=== PATIENT | female | born 1950 | race African-American/Black ===

== ENCOUNTER → 2017-05-24 | Emergency (ER) | payer OTHER, MEDICARE ==
[~2017-05-24] MED LIST: ALBUTEROL SO4 2.5/IPRATROPIUM 0.5 INH SOL 3 ML VIAL.NEB. NEB ONE; methylPREDNISolone NA SUCC 125 MG/2 ML VIAL ONE
--- NOTE | 2017-05-24 12:46 | PDOC ---
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 The patient reports her shortness of breath became worse this morning when she was walking up stairs. The patient states her shortness of breath is made worse with exertion and reports audible wheezing for approx. two days. The patient reports associated symptoms of chest tightness for 2 days. The patient reports associated symptoms of non productive cough and nausea. Patient states she lives at home with her granddaughter who is currently experiencing cold symptoms. Pt denies recent travel. The patient reports she has mold in her kitchen that may be effecting her breathing. She denies recent fevers, chills, abd pain, headache or dizziness. She denies swelling or calf tenderness. She denies recent, vomit, diarrhea or constipation. She denies recent dysuria, frequency, urgency or hematuria. Allergies: Penicillins Past surgical history: Appendectomy, Lysis of adhesions, Left breast biopsy, Resection of fibroids, Right rotator cuff repair, Bilateral tubal ligation Social history: Reports she stopped smoking approx. 20 years ago. Denies EtOH use and recreational drug use. " <Mike Mix - Last Filed: 05/24/17 15:17> <Arnold Munoz - Last Filed: 05/24/17 17:45> - General Stated Complaint: DIFFICULTY BREATHING Time Seen by Provider: 05/24/17 12:24 Past History <Mike Mix - Last Filed: 05/24/17 15:17> - Past Medical History Anemia: No Asthma: No Cancer: No Cardiac Disorders: No CVA: No COPD: No Dementia: No Diabetes: No Dialysis: No GI Disorders: No Disorders: No HTN: No Hypercholesterolemia: No HIV: No Kidney Stones: No Liver Disease: No Seizures: No Thyroid Disease: No - Surgical History Abdominal Surgery: No Appendectomy: No Cardiac Surgery: No Lung Surgery: No Neurologic Surgery: No - Psycho/Social/Smoking Cessation Hx Anxiety: No Suicidal Ideation: No Smoking Status: No Smoking History: Former smoker Have you smoked in the past 12 months: No Number of Cigarettes Smoked Daily: 0 Hx Alcohol Use: No Drug/Substance Use Hx: No Substance Use Type: None <Arnold Munoz - Last Filed: 05/24/17 17:45> - Past Medical History Allergies/Adverse Reactions: Allergies Allergy/AdvReac Type Severity Reaction Status Date / Time Penicillins Allergy Unknown Verified 02/08/16 01:04 Home Medications: Ambulatory Orders Multivitamin [Daily Multiple Vitamin] 1 each PO DAILY 04/20/12 Review of Systems - Review of Systems Comments:: 05/24/17 15:18 "GENERAL/CONSTITUTIONAL: No fever or chills. HEAD, EYES, EARS, NOSE AND THROAT: No change in vision. No ear pain or discharge. No sore throat. CARDIOVASCULAR: +Chest tightness RESPIRATORY: +Shortness of breath. +Non productive cough. No hemoptysis. GASTROINTESTINAL: +Nausea. No abd pain. No vomiting, diarrhea or constipation. GENITOURINARY: No dysuria, frequency, or change in urination. MUSCULOSKELETAL: No joint or muscle swelling or pain. No neck or back pain. SKIN: No rash NEUROLOGIC: No headache, vertigo, loss of consciousness, or change in strength/ sensation. ENDOCRINE: No increased thirst. No abnormal weight change. HEMATOLOGIC/LYMPHATIC: No anemia, easy bleeding, or history of blood clots. ALLERGIC/IMMUNOLOGIC: No hives or skin allergy. " <Mike Mix - Last Filed: 05/24/17 15:17> *Physical Exam - Vital Signs Last Vital Signs Temp Pulse Resp BP Pulse Ox 98.2 F 92 H 17 161/71 97 05/24/17 13:10 05/24/17 14:12 05/24/17 14:12 05/24/17 13:10 05/24/17 14:12 - Physical Exam Comments: 05/24/17 15:19 " GENERAL: +Mild respiratory distress speaking in 4-5 word sentences. Awake, alert , and fully oriented. HEAD: No signs of trauma EYES: PERRLA, EOMI, sclera anicteric, conjunctiva clear ENT: Auricles normal inspection, hearing grossly normal, nares patent, oropharynx clear without exudates. Moist mucosa NECK: Normal ROM, supple, no lymphadenopathy, JVD, or masses LUNGS: +Diffuse mild wheezing L>R. No crackles. Good air movement. No increased in work of breathing. HEART: Regular rate and rhythm, normal S1 and S2, no murmurs, rubs or gallops ABDOMEN: Soft, nontender, normoactive bowel sounds. No guarding, no rebound. No masses EXTREMITIES: Normal range of motion, no lower extremity edema. No clubbing or cyanosis. No cords, erythema, or tenderness NEUROLOGICAL: Normal speech, cranial nerves intact, negative pronator drift, 5/ 5 strength in all 4 extremities, normal sensation to light touch in all 4 extremities, normal cerebellar exam, normal gait, normal reflexes and tone SKIN: Warm, Dry, normal turgor, no rashes or lesions noted. ALLERGIC/IMMUNOLOGIC: No hives or skin allergy. " <Mike Mix - Last Filed: 05/24/17 15:17> ED Treatment Course - LABORATORY CBC & Chemistry Diagram: 05/24/17 13:12 05/24/17 13:12 - ADDITIONAL ORDERS Additional order review: Laboratory Results 05/24/17 05/24/17 13:12 13:10 Sodium 144 Potassium 3.4 L D Chloride 106 Carbon Dioxide 28 Anion Gap 10 BUN 16 D Creatinine 0.7 Creat Clearance w eGFR > 60 Random Glucose 118 H D Calcium 9.0 Magnesium 2.0 Total Bilirubin 0.4 D AST 11 L ALT 19 D Alkaline Phosphatase 51 Troponin I < 0.02 B-Natriuretic Peptide 16.36 Total Protein 6.9 Albumin 3.7 05/24/17 13:12 RBC 4.66 MCV 82.3 MCHC 32.9 RDW 15.2 MPV 8.8 Neutrophils % 49.6 D Lymphocytes % 44.2 H D Monocytes % 3.6 L Eosinophils % 1.6 Basophils % 1.0 <Mike Mix - Last Filed: 05/24/17 15:17> - LABORATORY CBC & Chemistry Diagram: 05/24/17 13:12 05/24/17 13:12 <Arnold Munoz - Last Filed: 05/24/17 17:45> Medical Decision Making - Medical Decision Making 05/24/17 15:03 67-year-old female history of osteomyelitis of the right jaw status post resection presents with 3 days of shortness of breath associated with chest tightness and coughing. Exam with diffuse mild wheezing and good air movement. Likely reactive airway disease possibly secondary to a viral syndrome given sick contact of granddaughter. Also on the differential is pneumonia however unlikely in absence of productive cough and fever. Pt reports possible mold exposure in her home as well and this may also be causing her SOB. We will check a troponin for the chest tightness that she's experienced for 2 days but unlikely to be ACS given wheezing, coughing, and non-ischemic EKG -labs -CXR -nebs -reassess 05/24/17 15:35 EKG, my read: NSR, rate 97, normal axis and intervals. TW flattening in II, III , avf and V4-V6. No DAV 05/24/17 17:39 Pt feels a lot better after a single round of nebs. Her labs are unremarkable. Her chest x-ray is clear. Likely reactive airway disease. Denies any chest tightness. Her daughter is here and states her mother has had on and off similar symptoms for 1 year now, possibly 2/2 to mold in her apartment. Given improvement with albuterol I will discharge the patient with albuterol and follow up with her primary care doctor within 1-3 days. Given the mold that the patient reports in her home, she informs me that she can stay with her daughter edith until the inspectors come to the apartment tomorrow to evaluate and treat the mold situation. I discussed the physical exam findings, ancillary test results and final diagnoses with the patient. I answered all of the patient's questions. The patient was satisfied with the care received and felt comfortable with the discharge plan and treatment plan. The patient will call their primary care physician within 24 hours to arrange follow-up and will return to the Emergency Department with any new, persistent or worsening symptoms. text <Arnold Munoz - Last Filed: 05/24/17 17:45> *DC/Admit/Observation/Transfer - Attestations Scribe Attestion: 05/24/17 15:19 Documentation prepared by Mike Mix, acting as medical billing coordinator for Arnold Munoz MD. <Mike Mix - Last Filed: 05/24/17 15:17> - Discharge Dispostion Admit: No - Attestations Physician Attestion: 05/24/17 17:44 I, Dr. Arnold Munoz MD, attest that this document has been prepared under my direction and personally reviewed by me in its entirety. I further attest, that it accurately reflects all work, treatment, procedures and medical decision -making performed by me. <Arnold Munoz - Last Filed: 05/24/17 17:45> Diagnosis at time of Disposition: Shortness of breath - Discharge Dispostion Disposition: HOME Condition at time of disposition: Stable - Patient Instructions Additional Instructions: Please see your primary care doctor within 1-3 days. Return to the emergency department immediately if your shortness of breath returns or if you have chest pain, fevers, weakness, falls or any symptoms you are concerned about.
[2017-05-24 13:15] VITALS: TEMP 98.2; BMI 30.2
[2017-05-24 13:31] LABS: EOSINOPHIL 1.6 % (0-4.5); MCH 27.1 pg (25.7-33.7); MCHC 32.9 g/dl (32.0-36.0); MEAN CELL VOLUME 82.3 fl (80-96); MEAN PLT VOLUME 8.8 fl (7.5-11.1); NEUTROPHILS 49.6 % (42.8-82.8); PLATELET COUNT 317 K/MM3 (134-434); RDW 15.2 % (11.6-15.6); WHITE BLOOD COUNT 6.9 K/mm3 (4.0-10.0)
[2017-05-24 14:19] LABS: ALBUMIN 3.7 g/dl (3.4-5.0); ANION GAP 10 (8-16); BILIRUBIN,TOTAL 0.4 mg/dL (0.2-1.0); CO2 28 mmol/L (21-32); CREATININE 0.7 mg/dL (0.55-1.02); GLUCOSE,RANDOM 118 mg/dL (74-106); SGOT/AST 11 U/L (15-37); SGPT/ALT 19 U/L (12-78); TOT PROT 6.9 g/dl (6.4-8.2)
[2017-05-24 14:22] LABS: ALK PHOS 51 U/L (45-117); TROPONIN I < 0.02 ng/ml (0.00-0.05)
[2017-05-24 17:56] VITALS: BP 141/68; PULSE 86
--- NOTE | 2017-05-25 10:27 | EKG ---
Test Reason : Blood Pressure : / mmHG Vent. Rate : 097 BPM Atrial Rate : 097 BPM P-R Int : 140 ms QRS Dur : 080 ms QT Int : 342 ms P-R-T Axes : 046 -07 008 degrees QTc Int : 434 ms NORMAL SINUS RHYTHM MODERATE VOLTAGE CRITERIA FOR LVH, MAY BE NORMAL VARIANT NONSPECIFIC T WAVE ABNORMALITY ABNORMAL ECG WHEN COMPARED WITH ECG OF 08-FEB-2016 07:57, NONSPECIFIC T WAVE ABNORMALITY NOW EVIDENT IN LATERAL LEADS Confirmed by ROYCE BONNER MD ([id number]) on 05/25/2017 10:26:39 AM Referred By: Confirmed By:ROYCE BONNER MD
== END | disposition home or self-care (01) ==
LOC: JER 12:16
PROC: 3E0F7GC Introduction of Other Therapeutic Substance into Respiratory Tract, Via Natural or Artificial Opening (ICD-10-PCS; principal; 2017-05-24)
DX: R06.02 Shortness of breath (principal); Z87.39 Personal history of other diseases of the musculoskeletal system and connective tissue; Z88.0 Allergy status to penicillin; Z87.891 Personal history of nicotine dependence
CPT/HCPCS: 36415; 71010-TC; 80053; 83735; 83880; 84484; 85025; 93005; 93010; 99282-25

== ENCOUNTER 2019-08-03 00:02 | Emergency (ER) | payer OTHER, MEDICARE ==
[2019-08-03] MEDS ORDERED: ASPIRIN 81 MG CHEWABLE TABLETS PO ONE (00:13)
[2019-08-03 00:19] VITALS: BP 139/88; PULSE 89; TEMP 98; BMI 29.5
[2019-08-03] MEDS ORDERED: ASPIRIN 81 MG CHEWABLE TABLETS ONE (00:30)
[2019-08-03] MEDS ORDERED: LIDOCAINE 5% TOPICAL PATCH ONE (00:38)
[2019-08-03] MEDS ORDERED: diazePAM 5 MG TABLET PO ONE (00:47)
[2019-08-03] MEDS ORDERED: diazePAM 5 MG TABLET ONE (01:12)
--- NOTE | 2019-08-03 01:47 | PDOC ---
History of Present Illness - General Chief Complaint: Pain, Acute Stated Complaint: LEFT ARM PAIN Time Seen by Provider: 08/03/19 00:12 History Source: Patient Exam Limitations: No Limitations - History of Present Illness Is this a multiple visit Asthma Patient?: No Timing/Duration: 24 hours Severity: moderate, severe Associated Symptoms: reports: denies symptoms Past History - Travel Traveled outside of the country in the last 30 days: Yes If so, where?: [place] - Past Medical History Allergies/Adverse Reactions: Allergies Allergy/AdvReac Type Severity Reaction Status Date / Time Penicillins Allergy Unknown Verified 08/03/19 00:17 Home Medications: Ambulatory Orders Multivitamin [Daily Multiple Vitamin] 1 each PO DAILY 04/20/12 Albuterol Sulfate Inhaler - [Ventolin HFA Inhaler -] 1 - 2 inh PO Q4H PRN #1 inhaler 05/24/17 Ibuprofen [Motrin -] 600 mg PO TID #30 tablet 08/03/19 Methocarbamol [Robaxin -] 500 mg PO TID #30 tablet 08/03/19 Methocarbamol [Robaxin -] 500 mg PO TID #30 tablet 08/03/19 Anemia: No Asthma: No Cancer: No Cardiac Disorders: No CVA: No COPD: No Dementia: No Diabetes: No Dialysis: No GI Disorders: No Disorders: No HTN: No Hypercholesterolemia: No Kidney Stones: No Liver Disease: No Seizures: No Thyroid Disease: No - Surgical History Abdominal Surgery: No Appendectomy: No Cardiac Surgery: No Lung Surgery: No Neurologic Surgery: No - Psycho Social/Smoking Cessation Hx Smoking Status: No Smoking History: Never smoked Have you smoked in the past 12 months: No Number of Cigarettes Smoked Daily: 0 If you are a former smoker, when did you quit?: 1986 Information on smoking cessation initiated: No Hx Alcohol Use: No Drug/Substance Use Hx: No Substance Use Type: None Review of Systems - Review of Systems Able to Perform ROS?: No Is the patient limited Mongolian proficient: No Constitutional: No: Symptoms Reported, See HPI, Chills, Diaphoresis, Fever, Loss of Appetite, Malaise, Night Sweats, Weakness, Weight Stable, Unintentional Wgt. Loss, Unexplained wgt Loss, Other HEENTM: No: Symptoms Reported, See HPI, Eye Pain, Blurred Vision, Tearing, Recent change in vision, Double Vision, Cataracts, Ear Pain, Ocular Prothesis, Ear Discharge, Nose Pain, Nose Congestion, Tinnitus, Nose Bleeding, Hearing Loss , Throat Pain, Throat Swelling, Mouth Pain, Dental Problems, Difficulty Swallowing, Mouth Swelling, Other Cardiac (ROS): No: Symptoms Reported, See HPI, Chest Pain, Edema, Irregular Heart Rate, Lightheadedness, Palpitations, Syncope, Chest Tightness, Other ABD/GI: Yes: Nausea. No: Symptoms Reported, See HPI, Abdominal Distended, Abd. Pain w/ defecation, Blood Streaked Bowels, Constipated, Diarrhea, Difficulty Swallowing, Poor Appetite, Poor Fluid Intake, Rectal Bleeding, Vomiting, Indigestion, Abdominal cramping, Tarry Stools, Other : No: Symptoms Reported, See HPI, Burning, Dysuria, Discharge, Frequency, Flank Pain, Hematuria, Incontinence, Pain, Urgency, Testicular Mass, Testicular Swelling, Lesions, Testicular Pain, Other Musculoskeletal: Yes: Joint Pain, Muscle Pain, Neck Pain, Joint Stiffness. No: Symptoms Reported, See HPI, Back Pain, Gout, Joint Swelling, Muscle Weakness, Other Integumentary: No: Symptoms Reported, See HPI, Bruising, Change in Color, Change in Hair/Nails, Dryness, Erythema, Flushing, Lesions, Lumps, Pallor, Pruritus, Rash, Sweating, Other Neurological: Yes: Weakness. No: Symptoms reported, See HPI, Headache, Numbness , Paresthesia, Pre-Existing Deficit, Seizure, Tingling, Tremors, Unsteady Gait, Ataxia, Dizziness, Other Psychiatric: No: Anxiety, Depression, Frequent Crying, Stressors, Sleep Pattern Change, Emotional Problems, Mood Swings, Change in Appetite, Other Endocrine: No: Symptoms Reported, See HPI, Excessive Sweating, Flushing, Intolerance to Cold, Intolerance to Heat, Increased Hunger, Increased Thirst, Increased Urine, Unexplained Weight Gain, Unexplained Weight Loss, Change in Weight, Other *Physical Exam - Vital Signs Last Vital Signs Temp Pulse Resp BP Pulse Ox 98.0 F 89 18 139/88 99 08/03/19 00:18 08/03/19 00:18 08/03/19 00:18 08/03/19 00:18 08/03/19 00:18 - Physical Exam General Appearance: Yes: Nourished, Appropriately Dressed, Moderate Distress HEENT: positive: EOMI, KPI, Normal ENT Inspection, Normal Voice, Symmetrical, TMs Normal, Pharynx Normal Neck: positive: Tender, Trachea midline, Supple Respiratory/Chest: positive: Lungs Clear, Normal Breath Sounds Cardiovascular: positive: Regular Rhythm, Regular Rate, S1, S2 Gastrointestinal/Abdominal: positive: Normal Bowel Sounds, Flat, Soft Musculoskeletal: positive: Normal Inspection, CVA Tenderness Extremity: positive: Normal Capillary Refill, Normal Inspection, Normal Range of Motion Integumentary: positive: Normal Color, Dry, Warm 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 NML intact, Fully Oriented, Alert, Normal Mood/ Affect, Normal Response, Motor Strength 5/5 (except for the left arm; deccreased strength due to pain in the shoulder) ED Treatment Course - RADIOLOGY Radiology Studies Ordered: Category Date Time Status CERVICAL SPINE CT W/O CONTR [CT] Stat CT Scan 08/03/19 00:44 Ordered SHOULDER-LEFT [RAD] Stat Radiology 08/03/19 00:46 Ordered - Medications Given in the ED: ED Medications Discontinued Medications Generic Name Dose Route Start Last Admin Trade Name Juanq PRN Reason Stop Dose Admin Aspirin 162 mg 08/03/19 00:13 08/03/19 00:42 Asa - PO 08/03/19 00:14 Not Given ONCE ONE Diazepam 5 mg 08/03/19 00:47 08/03/19 01:19 Valium - PO 08/03/19 00:48 5 mg ONCE ONE Administration Oxycodone/Acetaminophen 2 combo 08/03/19 00:12 08/03/19 00:42 Percocet 5/325 - PO 08/03/19 00:13 2 combo ONCE ONE Administration Medical Decision Making - Medical Decision Making 08/03/19 03:09 [place] X[address] appears normal. CT cervical spine appears normal to me; official result is pending. 08/03/19 03:23 Patient Name: SOLOMON ESCOBAR THIS IS A PRELIMINARY REPORT FROM [facility] DATE OF SERVICE: 2019-08-03 02:02:53 IMAGES: [id number] EXAM: CERVICAL SPINE CT W/O CONTR HISTORY: Trauma COMPARISON: None. FINDINGS: Mild degenerative changes are noted with a mild degenerative retrolisthesis of C4 on C5. There is no fracture or prevertebral soft tissue swelling. The lung apices are clear. IMPRESSION: No fracture. Discharge - Discharge Information Problems reviewed: Yes Clinical Impression/Diagnosis: Muscle spasm of shoulder region Condition: Improved Disposition: HOME - Admission No - Additional Discharge Information Prescriptions: Ibuprofen [Motrin -] 600 mg PO TID #30 tablet Methocarbamol [Robaxin -] 500 mg PO TID #30 tablet Methocarbamol [Robaxin -] 500 mg PO TID #30 tablet - Follow up/Referral - Patient Discharge Instructions Patient Printed Discharge Instructions: DI for Muscle Spasm - Post Discharge Activity
[2019-08-03] MEDS ORDERED: METHOCARBAMOL 500 MG TABLET PO ONE (03:20)
[2019-08-03] MEDS ORDERED: METHOCARBAMOL 500 MG TABLET ONE (03:32)
--- NOTE | 2019-08-03 09:29 | EKG ---
Test Reason : Blood Pressure : / mmHG Vent. Rate : 090 BPM Atrial Rate : 090 BPM P-R Int : 138 ms QRS Dur : 068 ms QT Int : 372 ms P-R-T Axes : 051 009 -14 degrees QTc Int : 455 ms POOR DATA QUALITY, INTERPRETATION MAY BE ADVERSELY AFFECTED NORMAL SINUS RHYTHM POSSIBLE LEFT ATRIAL ENLARGEMENT BORDERLINE ECG WHEN COMPARED WITH ECG OF 24-MAY-2017 13:39, NONSPECIFIC T WAVE ABNORMALITY, IMPROVED IN LATERAL LEADS Confirmed by REJI CONTRERAS, LEANNE ([id number]) on 08/03/2019 9:29:40 AM Referred By: Confirmed By:LEANNE MENDOZA MD
== END 2019-08-03 03:48 | disposition home or self-care (01) ==
LOC: JER 00:02
DX: M62.838 Other muscle spasm (principal); Z88.0 Allergy status to penicillin
CPT/HCPCS: 72125-TC; 73030-TC-LT-FY; 93005; 93010; 99282-25

== ENCOUNTER 2023-10-01 03:27 | Emergency (ER) | payer OTHER ==
[2023-10-01 03:45] VITALS: BP 121/80; PULSE 81; RESP 20; TEMP 97.4; BMI 28.9
[2023-10-01] MEDS ORDERED: KETOROLAC TROMETHAMINE 30 MG/1 ML VIAL IM ONE (03:48)
[2023-10-01] MEDS ORDERED: LIDOCAINE 5% TOPICAL PATCH TP ONE (03:48)
[2023-10-01] MEDS ORDERED: diazePAM 5 MG TABLET PO ONE (03:48)
[2023-10-01] MEDS ORDERED: diazePAM 5 MG TABLET ONE (04:01)
[2023-10-01] MEDS ORDERED: KETOROLAC TROMETHAMINE 30 MG/1 ML VIAL ONE (04:01)
[2023-10-01] MEDS ORDERED: LIDOCAINE 4% PATCH TP ONE (04:01)
[2023-10-01] MEDS ORDERED: morphine CARPU-JECT 2 MG/1 ML DISP.SYRIN IM ONE (05:05)
[2023-10-01] MEDS ORDERED: LIDOCAINE PATCH REMOVAL MC SCH (22:00)
== END 2023-10-01 06:55 | disposition home or self-care (01) ==
LOC: JER 03:27
PROC: 3E0233Z Introduction of Anti-inflammatory into Muscle, Percutaneous Approach (ICD-10-PCS; principal; 2023-10-01)
PROC: 3E023GC Introduction of Other Therapeutic Substance into Muscle, Percutaneous Approach (ICD-10-PCS; 2023-10-01)
DX: M54.2 Cervicalgia (principal); M43.6 Torticollis; W19.XXXA Unspecified fall, initial encounter
CPT/HCPCS: 72125-TC; 99284-25

== ENCOUNTER 2023-10-01 22:34 | Observation (INO) | payer OTHER ==
[2023-10-01] MEDS ORDERED: morphine CARPU-JECT 4 MG/1 ML DISP.SYRIN IVPUSH ONE (23:19)
[2023-10-01] MEDS ORDERED: morphine SULFATE 4 MG/ML VIAL ONE (23:24)
[2023-10-02 00:08] LABS: BASO % 0.8 % (0-2.0); EOS % 1.7 % (0-4.5); HEMATOCRIT 42.8 % (32.4-45.2); HEMOGLOBIN 13.9 GM/dL (10.7-15.3); LYMPH % 21.4 % (8-40); MCH 26.9 pg (25.7-33.7); MCHC 32.5 g/dl (32.0-36.0); MEAN CELL VOLUME 82.9 fl (80-96); MEAN PLT VOLUME 8.2 fl (7.5-11.1); MONO % 4.2 % (3.8-10.2); NEUT % 71.9 % (42.8-82.8); PLATELET COUNT 332 10^3/uL (134-434); RBC 5.16 M/mm3 (3.60-5.2); RDW 14.9 % (11.6-15.6); WHITE BLOOD COUNT 6.6 K/mm3 (4.0-10.0)
[2023-10-02 00:37] LABS: ALBUMIN 3.8 g/dl (3.4-5.0); CALCIUM 9.3 mg/dL (8.5-10.1)
[2023-10-02 00:38] LABS: BLOOD UREA NITROGEN 16.8 mg/dL (7-18)
[2023-10-02 00:41] LABS: CREATININE 0.8 mg/dL (0.55-1.3)
[2023-10-02 00:43] LABS: BILIRUBIN,TOTAL 0.2 mg/dL (0.2-1); TOT PROT 7.7 g/dl (6.4-8.2)
[2023-10-02] MEDS ORDERED: KETOROLAC TROMETHAMINE 30 MG/1 ML VIAL IVPUSH ONE (03:14)
[2023-10-02] MEDS ORDERED: LIDOCAINE 4% PATCH TP ONE ×3 (03:15→10:06)
[2023-10-02] MEDS ORDERED: KETOROLAC TROMETHAMINE 30 MG/1 ML VIAL ONE ×2 (03:22→04:03)
[2023-10-02] MEDS ORDERED: KETOROLAC TROMETHAMINE 30 MG/1 ML VIAL IM ONE (03:42)
[2023-10-02] MEDS ORDERED: ACETAMINOPHEN 500 MG TABLET (FP) PO PRN (06:03)
[2023-10-02] MEDS ORDERED: traMADol HCL 50 MG TABLET PO ONE (06:07)
[2023-10-02] MEDS ORDERED: SODIUM CHLORIDE 1,000 ML IV SCH (06:15)
[2023-10-02] MEDS ORDERED: traMADol HCL 50 MG TABLET ONE ×2 (06:32→16:39)
[2023-10-02 06:54] LABS: HEMATOCRIT 38.5 % (32.4-45.2); HEMOGLOBIN 12.4 GM/dL (10.7-15.3); MCHC 32.2 g/dl (32.0-36.0); MEAN CELL VOLUME 83.8 fl (80-96); MEAN PLT VOLUME 8.8 fl (7.5-11.1); PLATELET COUNT 283 10^3/uL (134-434); RBC 4.59 M/mm3 (3.60-5.2); RDW 14.9 % (11.6-15.6); WHITE BLOOD COUNT 5.1 K/mm3 (4.0-10.0)
[2023-10-02 07:18] LABS: POTASSIUM 3.9 mmol/L (3.5-5.1)
[2023-10-02 07:22] LABS: ALBUMIN 3.4 g/dl (3.4-5.0)
[2023-10-02 07:23] LABS: BLOOD UREA NITROGEN 14.8 mg/dL (7-18)
[2023-10-02 07:25] LABS: CREATININE 0.7 mg/dL (0.55-1.3)
[2023-10-02 07:27] LABS: BILIRUBIN,TOTAL 0.2 mg/dL (0.2-1); TOT PROT 6.6 g/dl (6.4-8.2)
[2023-10-02] MEDS ORDERED: ENOXAPARIN NA (PORCINE) 40 MG/0.4 ML DISP.SYRIN SQ ONE (10:07)
[2023-10-02] MEDS: LIDOCAINE 4% PATCH TP SCH (10:24)
[2023-10-02] MEDS: ENOXAPARIN NA (PORCINE) 40 MG/0.4 ML DISP.SYRIN SQ SCH ×2 (10:26→10:43)
[2023-10-02] MEDS: CELECOXIB 200 MG CAPSULE PO SCH ×2 (10:26→22:47)
[2023-10-02] MEDS ORDERED: CYCLOBENZAPRINE HCL 5 MG TABLET ONE (10:44)
[2023-10-02] MEDS: ACETAMINOPHEN 500 MG TABLET (FP) PO SCH (14:00)
[2023-10-02] MEDS: CYCLOBENZAPRINE HCL 10 MG TABLET (FP) PO PRN ×2 (16:27→22:48)
[2023-10-02] MEDS: traMADol HCL 50 MG TABLET PO PRN ×2 (16:46→22:44)
[2023-10-02] MEDS ORDERED: ACETAMINOPHEN 1000 MG/100 ML BAG IVPB ONE (20:16)
[2023-10-02] MEDS: KETOROLAC TROMETHAMINE 15 MG/ML VIAL IM PRN (20:38)
[2023-10-02] MEDS ORDERED: LIDOCAINE PATCH REMOVAL MC SCH (22:00)
[2023-10-03] MEDS: LIDOCAINE PATCH REMOVAL MC SCH ×2 (00:15→22:13)
[2023-10-03 03:24] VITALS: RESP 18
[2023-10-03] MEDS: ACETAMINOPHEN 500 MG TABLET (FP) PO SCH ×4 (05:06→22:43)
[2023-10-03] MEDS: KETOROLAC TROMETHAMINE 15 MG/ML VIAL IM PRN ×3 (05:10→22:04)
[2023-10-03] MEDS: LIDOCAINE 4% PATCH TP SCH (09:30)
[2023-10-03] MEDS: ENOXAPARIN NA (PORCINE) 40 MG/0.4 ML DISP.SYRIN SQ SCH ×2 (09:30→09:39)
[2023-10-03] MEDS: traMADol HCL 50 MG TABLET PO PRN ×2 (09:31→15:16)
[2023-10-03] MEDS: CELECOXIB 200 MG CAPSULE PO SCH ×2 (09:31→23:45)
[2023-10-03] MEDS ORDERED: methylPREDNISolone 8 MG TABLET PO ONE (10:54)
[2023-10-03] MEDS: CYCLOBENZAPRINE HCL 10 MG TABLET (FP) PO PRN ×2 (11:57→22:08)
[2023-10-03 16:01] LABS: BASO % 1.3 % (0-2.0); EOS % 3.4 % (0-4.5); HEMATOCRIT 38.8 % (32.4-45.2); HEMOGLOBIN 12.5 GM/dL (10.7-15.3); LYMPH % 31.6 % (8-40); MCHC 32.2 g/dl (32.0-36.0); MEAN CELL VOLUME 84.1 fl (80-96); MEAN PLT VOLUME 8.5 fl (7.5-11.1); MONO % 5.8 % (3.8-10.2); NEUT % 57.9 % (42.8-82.8); PLATELET COUNT 296 10^3/uL (134-434); RBC 4.62 M/mm3 (3.60-5.2); RDW 15.2 % (11.6-15.6); WHITE BLOOD COUNT 5.3 K/mm3 (4.0-10.0)
[2023-10-03 16:23] LABS: POTASSIUM 3.9 mmol/L (3.5-5.1)
[2023-10-03 16:24] LABS: CALCIUM 8.7 mg/dL (8.5-10.1)
[2023-10-03 16:26] LABS: BLOOD UREA NITROGEN 11.1 mg/dL (7-18); MAGNESIUM 1.8 mg/dL (1.8-2.4)
[2023-10-03 16:27] LABS: CREATININE 0.6 mg/dL (0.55-1.3)
[2023-10-03 16:29] LABS: BILIRUBIN,TOTAL 0.2 mg/dL (0.2-1); TOT PROT 6.2 g/dl (6.4-8.2)
[2023-10-03] MEDS ORDERED: traMADol HCL 50 MG TABLET PO ONE (21:39)
[2023-10-03] MEDS: GABAPENTIN 300 MG CAPSULE PO SCH ×2 (22:08→22:43)
[2023-10-03] MEDS ORDERED: SENNOSIDES 8.8 MG/5 ML SYRUP PO SCH (22:44)
[2023-10-03] MEDS: POLYETHYLENE GLYCOL (HEALTHYLAX) 3350 17 GM PACKET PO SCH (22:48)
[2023-10-04] MEDS: GABAPENTIN 300 MG CAPSULE PO SCH ×3 (05:01→13:35)
[2023-10-04] MEDS: ACETAMINOPHEN 500 MG TABLET (FP) PO SCH ×2 (06:51→13:34)
[2023-10-04] MEDS: traMADol HCL 50 MG TABLET PO PRN (06:54)
[2023-10-04 07:19] VITALS: BP 111/60; PULSE 80; TEMP 98.3
[2023-10-04] MEDS ORDERED: traMADol HCL 50 MG TABLET PO PRN (08:01)
[2023-10-04] MEDS: ENOXAPARIN NA (PORCINE) 40 MG/0.4 ML DISP.SYRIN SQ SCH (09:11)
[2023-10-04] MEDS: POLYETHYLENE GLYCOL (HEALTHYLAX) 3350 17 GM PACKET PO SCH (09:12)
[2023-10-04] MEDS: CELECOXIB 200 MG CAPSULE PO SCH (09:12)
[2023-10-04] MEDS: LIDOCAINE 4% PATCH TP SCH (09:12)
[2023-10-04] MEDS ORDERED: methylPREDNISolone 4 MG TABLET PO ONE (09:30)
[2023-10-04] MEDS ORDERED: PANTOPRAZOLE 40 MG TABLET PO SCH (10:00)
== END 2023-10-04 15:11 | disposition home or self-care (01) ==
LOC: JER 22:34 → JERBED 10-02 04:41 → J5S 10-02 19:59
PROVIDERS: ADMIT Internal Medicine; ATTEND Internal Medicine
PROC: 3E023GC Introduction of Other Therapeutic Substance into Muscle, Percutaneous Approach (ICD-10-PCS; principal; 2023-10-02)
PROC: 3E0333Z Introduction of Anti-inflammatory into Peripheral Vein, Percutaneous Approach (ICD-10-PCS; 2023-10-02)
PROC: 3E033NZ Introduction of Analgesics, Hypnotics, Sedatives into Peripheral Vein, Percutaneous Approach (ICD-10-PCS; 2023-10-02)
DX: M54.2 Cervicalgia (principal); K31.84 Gastroparesis; M86.9 Osteomyelitis, unspecified; M19.90 Unspecified osteoarthritis, unspecified site; W18.39XA Other fall on same level, initial encounter; Y93.89 Activity, other specified; Y92.000 Kitchen of unspecified non-institutional (private) residence as the place of occurrence of the external cause; Z90.79 Acquired absence of other genital organ(s); Z90.49 Acquired absence of other specified parts of digestive tract; R25.2 Cramp and spasm; Z87.891 Personal history of nicotine dependence; Z88.0 Allergy status to penicillin
CPT/HCPCS: 36415; 70450-TC; 70496-TC; 70498-TC; 71045-TC-FY; 72040-TC; 72141-TC; 80053; 83735; 84484; 85025; 85027; 93005; 93010; 96372; 96374; 96375; 99285-25; G0378; Q9967